=== PATIENT | female | born 1990 | race American Indian/Alaskan Native ===

== ENCOUNTER 2016-08-02 06:27 | Emergency (ER) | payer SELFPAY ==
[2016-08-02 06:39] VITALS: BP 110/77
== END 2016-08-02 09:48 | disposition left against medical advice (07) ==
LOC: ED 06:27
DX: M79.601 Pain in right arm (principal); M25.561 Pain in right knee; Z53.21 Procedure and treatment not carried out due to patient leaving prior to being seen by health care provider

== ENCOUNTER 2017-11-15 20:50 | Emergency (ER) | payer SELFPAY ==
[2017-11-15] MEDS ORDERED: TORADOL ONE (21:35)
[2017-11-15 21:54] VITALS: BP 124/58
[2017-11-15] MEDS ORDERED: TORADOL IM ONE (22:00)
--- NOTE | 2017-11-16 00:07 | XRay Report ---
FINAL REPORT EXAM: XR RIBS UNILAT 2V RT HISTORY: right rib pain TECHNIQUE: Two views of the right ribs were submitted. FINDINGS: There is no evidence acute right-sided rib fracture. The lungs are clear. Pleural fluid is not seen. The skeletal structures otherwise reveal a dextroscoliosis of the thoracolumbar junction. IMPRESSION: No evidence acute right-sided rib fracture.
--- NOTE | 2017-11-16 00:08 | XRay Report ---
FINAL REPORT EXAM: XR SPINE CERVICAL 2-3V HISTORY: neck pain TECHNIQUE: Three views of the cervical spine were submitted. FINDINGS: The disc heights and alignment appear normal. The pre vertebral soft tissues and C1-C2 articulation appear intact. IMPRESSION: Within normal limits.
== END 2017-11-15 21:54 | disposition left against medical advice (07) ==
LOC: ED 20:50
DX: M54.2 Cervicalgia (principal); Z53.21 Procedure and treatment not carried out due to patient leaving prior to being seen by health care provider; R07.81 Pleurodynia
CPT/HCPCS: 71100; 72040; J1885

== ENCOUNTER 2019-02-13 15:01 | Emergency (ER) | payer OTHER ==
[2019-02-13] MEDS ORDERED: NACL 0.9% 1000 ML 1,000 ML IV ONE (16:11)
[2019-02-13] MEDS ORDERED: ZOFRAN IV ONE (16:11)
[2019-02-13] MEDS ORDERED: MORPHINE IV ONE (16:11)
[2019-02-13] MEDS ORDERED: TORADOL IV ONE (16:11)
[2019-02-13 16:35] LABS: Basophils % (Auto) 0.5 % (0.0-1.8); Eosinophils # (Auto) 0.2 K/mm3 (0.0-0.4); Eosinophils % (Auto) 2.6 % (0.0-4.3); Hematocrit 37.9 % (30.3-42.9); Lymphocytes # (Auto) 1.4 K/mm3 (1.2-5.4); Lymphocytes % (Auto) 19.8 % (13.4-35.0); Mean Corpuscular HGB Conc 34 % (30-34); Mean Corpuscular Volume 99 fl (79-97); Monocytes # (Auto) 0.5 K/mm3 (0.0-0.8); Monocytes % (Auto) 6.9 % (0.0-7.3); Platelet Count 209 K/mm3 (140-440); Red Blood Count 3.84 M/mm3 (3.65-5.03); Red Cell Distribution Width 11.8 % (13.2-15.2)
[2019-02-13 16:55] LABS: BUN/Creatinine Ratio 17; Blood Urea Nitrogen 12 mg/dL (7-17); Calcium 8.9 mg/dL (8.4-10.2); Hemolysis Index 5
[2019-02-13] MEDS ORDERED: TORADOL IVP ONE (17:30)
[2019-02-13 19:01] LABS: Color,Urine Colorless (Yellow)
[2019-02-13 19:02] LABS: Bacteria,Urine 1+ /HPF (Negative); Bilirubin,Urine NEG (Negative); Blood,Urine NEG (Negative); Mucus,Urine FEW /HPF; Protein,Urine <15 mg/dL mg/dL (Negative); Urobilinogen,Urine < 2.0 mg/dL (<2.0); WBC,Urine < 1.0 /HPF (0.0-6.0)
--- NOTE | 2019-02-13 19:32 | Ultrasound Report ---
Pelvic ultrasound complete INDICATION: Pelvic pain, FINDINGS: Transabdominal and transvaginal imaging is performed. The uterus measures 7.5 cm. The endometrial stripe measures 9 mm. The right ovary measures 2.4 cm and the left ovary measures 3.2 cm. There is a small amount of free fluid in cul-de-sac. Is a soft tissue structure in the right adnexa which appears to have the lumen is a small amount of f luid adjacent to this. This may simply be a loop of bowel in the adnexa. The exact etiology of this i s not certain. IMPRESSION: There is a small amount of free fluid. There is an unusual soft tissue structure right adnexa adjacent to the ovary. This may represent a lo op of bowel. Is possible this could represent wall thickening in the fallopian tube and represent inflammation of the fallopian tube. This is not fluid filled and does not have typical appearance of tubo-ovarian abs cess. Depending on clinical circumstance. CT imaging of the pelvis may be helpful to further delineat e this structure. Signer Name: Ronan Mathis MD Signed: 02/13/2019 7:28 PM Workstation Name: [id number]
--- NOTE | 2019-02-13 20:12 | Emergency Department Report ---
ED Abdominal Pain HPI - General Chief Complaint: Abdominal Pain Stated Complaint: ABD PAIN Time Seen by Provider: 02/13/19 16:01 Source: patient, EMS Mode of arrival: Stretcher Limitations: No Limitations - History of Present Illness Initial Comments: Patient is a 28-year-old Female with no significant past medical history who is complaining of some lower abdominal and pelvic pain for the last week. Patient states that 2 days ago she attempted to have sexual intercourse but it was unsuccessful secondary to pain. The patient attempted again today with her partner and again could not has sexual intercourse secondary to intense pain. Patient states a baseline pain is a 6 02/08/2010 out of 10 after intercourse. Patient states there is been no dysuria she does have vaginal discharge. Patient states she was diagnosed with possible UTI 1 month ago but was not given a prescription according to the patient. Patient states she took some clindamy jerry from her boyfriend stated that the pain is worsened after taking the antibiotics. Patient denies any vomiting but does have some mild nausea. Patient states she had one episode of loose watery stools. Severity scale (0 -10): 4 - Related Data Previous Rx's Medication Instructions Recorded Last Taken Type Famotidine [Pepcid] 20 mg PO BID #30 tablet 09/13/15 Unknown Rx Ondansetron [Zofran Odt] 4 mg PO Q8H PRN #10 tab.rapdis 09/13/15 Unknown Rx DOXYCYCLINE Hyclate [Vibramycin 100 mg PO Q12HR #14 capsule 02/13/19 Unknown Rx CAP] HYDROcodone/APAP 5-325 [[place] 1 each PO Q6HR PRN #14 tablet 02/13/19 Unknown Rx 5/325] Ibuprofen [Motrin 600 MG tab] 600 mg PO Q8H PRN #20 tablet 02/13/19 Unknown Rx metroNIDAZOLE [Flagyl] 500 mg PO Q12HR #14 tab 02/13/19 Unknown Rx Allergies Allergy/AdvReac Type Severity Reaction Status Date / Time prednisone AdvReac Nausea Verified 09/13/15 13:16 ED Review of Systems ROS: Stated complaint: ABD PAIN Other details as noted in HPI Comment: All other systems reviewed and negative ED Past Medical Hx - Past Medical History Hx Asthma: Yes Additional medical history: stomach ulcers - Surgical History Additional Surgical History: , x1 -01/18 - Social History Smoking Status: Current Every Day Smoker Substance Use Type: Marijuana - Medications Home Medications: Home Medications Medication Instructions Recorded Confirmed Last Taken Type Famotidine [Pepcid] 20 mg PO BID #30 tablet 09/13/15 Unknown Rx Ondansetron [Zofran Odt] 4 mg PO Q8H PRN #10 tab.rapdis 09/13/15 Unknown Rx DOXYCYCLINE Hyclate [Vibramycin 100 mg PO Q12HR #14 capsule 02/13/19 Unknown Rx CAP] HYDROcodone/APAP 5-325 [[place] 1 each PO Q6HR PRN #14 tablet 02/13/19 Unknown Rx 5/325] Ibuprofen [Motrin 600 MG tab] 600 mg PO Q8H PRN #20 tablet 02/13/19 Unknown Rx metroNIDAZOLE [Flagyl] 500 mg PO Q12HR #14 tab 02/13/19 Unknown Rx ED Physical Exam - General Limitations: No Limitations General appearance: alert, in no apparent distress - Head Head exam: Present: atraumatic, normocephalic - Eye Eye exam: Present: normal appearance - ENT ENT exam: Present: mucous membranes moist. Absent: normal exam, normal orophraynx - Neck Neck exam: Present: normal inspection - Respiratory Respiratory exam: Present: normal lung sounds bilaterally. Absent: respiratory distress, wheezes, rales, rhonchi - Cardiovascular Cardiovascular Exam: Present: regular rate, normal rhythm, normal heart sounds. Absent: systolic murmur, diastolic murmur, rubs, gallop - GI/Abdominal GI/Abdominal exam: Present: soft, tenderness (suprapubic), normal bowel sounds. Absent: distended, guarding, rebound - External exam: Present: normal external exam Speculum exam: Present: vaginal discharge (thick white creamy discharge), cervical discharge. Absent: vaginal bleeding Bi-manual exam: Absent: cervical motion tendernes - Extremities Exam Extremities exam: Present: normal inspection - Back Exam Back exam: Present: normal inspection - Neurological Exam Neurological exam: Present: alert, oriented X3, CN II-XII intact - Psychiatric Psychiatric exam: Present: normal affect, normal mood - Skin Skin exam: Present: warm, dry, intact, normal color. Absent: rash ED Course Vital Signs 02/13/19 02/13/19 15:15 16:56 Pulse Rate 79 Respiratory 18 16 Rate Blood Pressure 108/61 O2 Sat by Pulse 100 Oximetry ED Medical Decision Making - Lab Data Result diagrams: 02/13/19 16:22 02/13/19 16:22 Lab Results 02/13/19 02/13/19 02/13/19 Range/Units 16:22 16:22 16:22 WBC 6.9 (4.5-11.0) K/mm3 RBC 3.84 (3.65-5.03) M/mm3 Hgb 13.0 (10.1-14.3) gm/dl Hct 37.9 (30.3-42.9) % MCV 99 H (79-97) fl MCH 34 H (28-32) pg MCHC 34 (30-34) % RDW 11.8 L (13.2-15.2) % Plt Count 209 (140-440) K/mm3 Lymph % (Auto) 19.8 (13.4-35.0) % [place] % (Auto) 6.9 (0.0-7.3) % Eos % (Auto) 2.6 (0.0-4.3) % Baso % (Auto) 0.5 (0.0-1.8) % Lymph # 1.4 (1.2-5.4) K/mm3 [place] # 0.5 (0.0-0.8) K/mm3 Eos # 0.2 (0.0-0.4) K/mm3 Baso # 0.0 (0.0-0.1) K/mm3 Seg Neutrophils % 70.2 H (40.0-70.0) % Seg Neutrophils # 4.9 (1.8-7.7) K/mm3 Sodium 140 (137-145) mmol/L Potassium 4.1 (3.6-5.0) mmol/L Chloride 106.1 (98-107) mmol/L Carbon Dioxide 24 (22-30) mmol/L Anion Gap 14 mmol/L BUN 12 (7-17) mg/dL Creatinine 0.7 (0.7-1.2) mg/dL Estimated GFR > 60 ml/min BUN/Creatinine Ratio 17 % Glucose 82 (65-100) mg/dL Calcium 8.9 (8.4-10.2) mg/dL HCG, Quant < 2 (0-4) mIU/mL Urine Color (Yellow) Urine Turbidity (Clear) Urine pH (5.0-7.0) Ur Specific [place] (1.003-1.030) Urine Protein (Negative) mg/dL Urine Glucose (UA) (Negative) mg/dL Urine Ketones (Negative) mg/dL Urine Blood (Negative) Urine Nitrite (Negative) Urine Bilirubin (Negative) Urine Urobilinogen (<2.0) mg/dL Ur Leukocyte Esterase (Negative) Urine WBC (Auto) (0.0-6.0) /HPF Urine RBC (Auto) (0.0-6.0) /HPF U Epithel Cells (Auto) (0-13.0) /HPF Urine Bacteria (Auto) (Negative) /HPF Urine Mucus /HPF 02/13/19 Range/Units 18:12 WBC (4.5-11.0) K/mm3 RBC (3.65-5.03) M/mm3 Hgb (10.1-14.3) gm/dl Hct (30.3-42.9) % MCV (79-97) fl MCH (28-32) pg MCHC (30-34) % RDW (13.2-15.2) % Plt Count (140-440) K/mm3 Lymph % (Auto) (13.4-35.0) % [place] % (Auto) (0.0-7.3) % Eos % (Auto) (0.0-4.3) % Baso % (Auto) (0.0-1.8) % Lymph # (1.2-5.4) K/mm3 [place] # (0.0-0.8) K/mm3 Eos # (0.0-0.4) K/mm3 Baso # (0.0-0.1) K/mm3 Seg Neutrophils % (40.0-70.0) % Seg Neutrophils # (1.8-7.7) K/mm3 Sodium (137-145) mmol/L Potassium (3.6-5.0) mmol/L Chloride (98-107) mmol/L Carbon Dioxide (22-30) mmol/L Anion Gap mmol/L BUN (7-17) mg/dL Creatinine (0.7-1.2) mg/dL Estimated GFR ml/min BUN/Creatinine Ratio % Glucose (65-100) mg/dL Calcium (8.4-10.2) mg/dL HCG, Quant (0-4) mIU/mL Urine Color Colorless (Yellow) Urine Turbidity Clear (Clear) Urine pH 7.0 (5.0-7.0) Ur Specific [place] 1.005 (1.003-1.030) Urine Protein <15 mg/dl (Negative) mg/dL Urine Glucose (UA) Neg (Negative) mg/dL Urine Ketones Neg (Negative) mg/dL Urine Blood Neg (Negative) Urine Nitrite Neg (Negative) Urine Bilirubin Neg (Negative) Urine Urobilinogen < 2.0 (<2.0) mg/dL Ur Leukocyte Esterase Neg (Negative) Urine WBC (Auto) < 1.0 (0.0-6.0) /HPF Urine RBC (Auto) 1.0 (0.0-6.0) /HPF U Epithel Cells (Auto) 1.0 (0-13.0) /HPF Urine Bacteria (Auto) 1+ (Negative) /HPF Urine Mucus Few /HPF - Radiology Data [facility] [address] [id number] Ultrasound Report Signed Patient: LUIS ENRIQUE ROSE MR#: [id number] : 1990 Acct:[id number] Age/Sex: 28 / F ADM Date: 02/13/19 Loc: ED Attending Dr: Ordering Physician: BRET VARGAS MD Date of Service: 02/13/19 Procedure(s): US transvaginal Accession Number(s): [id number] cc: BRET VARGAS MD Pelvic ultrasound complete INDICATION: Pelvic pain, FINDINGS: Transabdominal and transvaginal imaging is performed. The uterus measures 7.5 cm. The endometrial stripe measures 9 mm. The right ovary measures 2.4 cm and the left ovary measures 3.2 cm. There is a small amount of free fluid in cul-de-sac. Is a soft tissue structure in the right adnexa which appears to have the lumen is a small amount of fluid adjacent to this. This may simply be a loop of bowel in the adnexa. The exact etiology of this is not certain. IMPRESSION: There is a small amount of free fluid. There is an unusual soft tissue structure right adnexa adjacent to the ovary. This may represent a loop of bowel. Is possible this could represent wall thickening in the fallopian tube and represent inflammation of the fallopian tube. This is not fluid filled and does not have typical appearance of tubo-ovarian abscess. Depending on clinical circumstance. CT imaging of the pelvis may be helpful to further delineate this structure. Signer Name: Ronan Mathis MD Signed: 02/13/2019 7:28 PM Workstation Name: [id number] Transcribed By: CHANG Dictated By: Ronan Mathis MD Electronically Authenticated By: Ronan Mathis MD Signed Date/Time: 02/13/191927 DD/ 22 TD/TT: - Medical Decision Making Patient with evidence of bacterial vaginosis for her wet prep. Cultures for GC chlamydia have been sent. Patient has some generalized pelvic pain is not localized to the right or left. Ultrasound shows that the patient likely has a loop of bowel near the right adnexa however inflamed fallopian tube could not be ruled out. There is no evidence of any fluid-filled collection or abscess. Patient restarted on Flagyl and doxycycline to cover for possible PID. Critical care attestation.: If time is entered above; I have spent that time in minutes in the direct care of this critically ill patient, excluding procedure time. ED Disposition Clinical Impression: Bacterial vaginosis, PID (acute pelvic inflammatory disease) Disposition: DC-01 TO HOME OR SELFCARE Is pt being admited?: No Does the pt Need Aspirin: No Condition: Stable Instructions: Abdominal Pain (ED), Bacterial Vaginosis (ED), Pelvic Inflammatory Disease (ED) Referrals: YAAKOV NATION MD [Primary Care Provider] - 3-5 Days Time of Disposition: 20:13
[2019-02-13] MEDS ORDERED: ROCEPHIN IM ONE (20:14)
[2019-02-13] MEDS ORDERED: VIBRAMYCIN PO ONE (20:14)
[2019-02-13] MEDS ORDERED: XYLOCAINE 1% MPF 5 mL INFILTRATI ONE (20:14)
[2019-02-13 20:51] VITALS: BP 106/56
== END 2019-02-13 20:57 | disposition home or self-care (01) ==
LOC: ED 15:01
DX: N76.0 Acute vaginitis (principal); B96.89 Other specified bacterial agents as the cause of diseases classified elsewhere; N73.8 Other specified female pelvic inflammatory diseases; J45.909 Unspecified asthma, uncomplicated; F17.200 Nicotine dependence, unspecified, uncomplicated; F12.10 Cannabis abuse, uncomplicated; Z88.5 Allergy status to narcotic agent; Z79.1 Long term (current) use of non-steroidal anti-inflammatories (NSAID); Z79.899 Other long term (current) drug therapy
CPT/HCPCS: 36415; 76830; 76856; 80048; 81001; 84702; 85025; 87210; 87591; 96372; 96374; 96375; 99285; J0696; J2270; J2405; J7030